=== PATIENT | male | born 1955 | race Asian ===

== ENCOUNTER 2018-01-01 12:29 | Emergency (ER) | payer OTHER ==
[~2018-01-01] VITALS: Ht 167.6 cm; Wt 74.4 kg
[2018-01-01 12:33] VITALS: Ht 167.6 cm; Wt 74.4 kg
[2018-01-01 13:14] LABS: BASOPHIL % 0.3 % (0-2); PLATELET COUNT 182 x10^3mcL (130-400)
[2018-01-01 13:20] LABS: RED CELL DISTRIBUTION WIDTH 14.7 % (11.5-14.5)
[2018-01-01 13:44] LABS: rbc morphology (normal/abnorm) ABNORMAL (NORMAL)
[2018-01-01 14:21] LABS: ALBUMIN 4.1 g/dL (3.4-5.0); ALKALINE PHOSPHATASE 103 U/L (46-116); ALT/SGPT 35 U/L (16-63); AST/SGOT 17 U/L (15-37); CALCIUM 8.1 mg/dL (8.5-10.1); CARBON DIOXIDE 25.6 mmol/L (21-32); CHLORIDE SERUM 107 mmol/L (98-107); CREATININE SERUM 0.7 mg/dL (0.7-1.3); GFR1 > 60 mL/min; GLUCOSE SERUM 99 mg/dL (74-106); SODIUM SERUM 141 mmol/L (136-145)
[2018-01-01 14:38] VITALS: BP 133/93
== END 2018-01-01 14:38 | disposition home or self-care (01) ==
LOC: ED 12:29
PROVIDERS: Emergency Medicine
DX: N13.2 Hydronephrosis with renal and ureteral calculous obstruction (principal)
CPT/HCPCS: J7030